=== PATIENT | female | born 1970 | race Caucasian/White ===

== ENCOUNTER 2016-09-26 08:29 | Observation (INO) ==
--- NOTE | 2016-09-26 08:43 | Emergency Department Note ---
Disposition Clinical Impression: Chest pain Qualifiers: Chest pain type: unspecified Qualified Code(s): R07.9 - Chest pain, unspecified Disposition: Admitted As Inpatient Condition: Good Time of Disposition: 09:51 Chest Pain HPI - General Chief Complaint: ED Chest Pain Stated Complaint: Chest Pains Time Seen by Provider: 09/26/16 08:33 Source: patient Mode of arrival: ambulatory Limitations: no limitations Vital Signs Reviewed: Yes Nursing Notes Reviewed: Yes - History of Present Illness HPI Narrative: Patient is an obese 46-year-old female with a past medical history of hypertension, migraine, GERD and pulmonary embolism that presents the ED with chief complaint chest pain that started approximately one hour ago. Patient states chest pain started while she was laying in bed this morning. Patient describes chest pain as dull, sharp, heavy and radiating to her left shoulder with associated nausea. She denies any shortness of breath, cough, fever, chills, abdominal pain, weakness or any other symptoms/complaints. Patient states this nothing like her PEs in the past. States it is a different kind of pain and she normally has as of breath with a PE. Denies smoking. Reports she took an aspirin prior to arrival. Pt complaint: chest pain Onset (ago): hour(s) (1 hr) Duration: constant Onset: during rest Pain Location: substernal, left chest Severity: moderate Severity scale (1-10): 8 Quality: heaviness, sharp, dull Pain Radiation: LUE Improves with: nothing Worsens with: nothing Context: history of DVT/PE Associated symptoms: Reports: nausea. Denies: vomiting, diaphoresis, dyspnea, sense of impending doom, syncope, palpitations, fever, cough, leg swelling Treatments prior to arrival chest pain: aspirin - Related Data Home Medications Medication Instructions Recorded Confirmed Albuterol Sulfate [Proair Hfa] 2 puff IH Q4H PRN 02/09/16 02/09/16 Aspirin 81 mg PO DAILY 02/09/16 02/09/16 Cetirizine HCl [Zyrtec] 10 mg PO DAILY 02/09/16 02/09/16 Cholecalciferol (D-3) [Vitamin D] 1,000 unit PO DAILY 02/09/16 02/09/16 Cyclobenzaprine [Flexeril] 10 mg PO TID PRN 02/09/16 02/09/16 Cyclosporine [Restasis] 1 each OP BID 02/09/16 02/09/16 Diazepam [Valium] 5 mg PO QID PRN 02/09/16 02/09/16 Docusate [Colace] 100 mg PO DAILY 02/09/16 02/09/16 Ferrous Sulfate 325 mg PO DAILY 02/09/16 02/09/16 Fluticasone Propionate Nasal 50 mcg NS BID 02/09/16 02/09/16 [Flonase] Folic Acid/Multivit-Min/Lutein 1 each PO DAILY 02/09/16 02/09/16 [Adult Multivitamin Gummies] Furosemide [Lasix] 40 mg PO BID 02/09/16 02/09/16 Gabapentin [Neurontin] 800 mg PO QID 02/09/16 02/09/16 Glatiramer Acetate [Copaxone] 40 mg SQ MOWEFR 02/09/16 02/09/16 Guaifenesin [Mucinex] 600 mg PO DAILY PRN 02/09/16 02/09/16 HYDROcodone/Acet 10/325 mg [[place] 1 tab PO Q4HR PRN 02/09/16 02/09/16 10-325 mg] Hydrochlorothiazide 12.5 mg PO DAILY 02/09/16 02/09/16 Lidocaine Patch [Lidoderm 5% patch] 1 each TP DAILY 02/09/16 02/09/16 Nystatin POWDER [Nystop] 1 appl TP DAILY 02/09/16 02/09/16 Polyethylene Glycol 3350 [MiraLAX] 17 gm PO DAILY PRN 02/09/16 02/09/16 Promethazine [Phenergan] 25 mg PO HS 02/09/16 02/09/16 Ranitidine HCl [Zantac] 150 mg PO BID 02/09/16 02/09/16 SUMAtriptan Succinate [Imitrex] 100 mg PO AD PRN 02/09/16 02/09/16 Scopolamine Patch [Transderm-Scop] 1.5 mg TD Q72H PRN 02/09/16 02/09/16 Tizanidine HCl [Zanaflex] 4 mg PO HS 02/09/16 02/09/16 Topiramate [Topamax] 50 mg PO BID 02/09/16 02/09/16 Omeprazole [PriLOSEC] 40 mg PO DAILY 09/26/16 09/26/16 Warfarin [Coumadin] 10 - 12.5 mg PO DAILY MDD 09/26/16 09/26/16 DIRECTED Previous Rx's Medication Instructions Recorded Ondansetron ODT [Zofran ODT] 4 mg SL Q8HR #14 tab.rapdis 07/29/16 Allergies Allergy/AdvReac Type Severity Reaction Status Date / Time codeine AdvReac See Verified 08/07/16 12:00 Comments Erythromycin Base AdvReac Vomiting Verified 08/07/16 12:00 Tetracycline AdvReac Vomiting Verified 08/07/16 12:00 All systems ED: reviewed and negative except as stated. Constitutional: Denies: fever, chills, weakness ENT ED: Denies: throat pain Cardiovascular: Reports: chest pain. Denies: palpitations, dyspnea on exertion , syncope, paroxysmal nocturnal dyspnea Respiratory: Denies: cough, dyspnea, wheezes, hemoptysis Gastrointestinal: Reports: nausea. 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: Reports: endometriosis - Social History Smoking Status: Never smoker Alcohol use: Reports: none Drug use: Reports: none Physical Exam - General Limitations: no limitations General appearance: alert, in no apparent distress - Head Head exam: atraumatic, normocephalic, normal inspection - Eye Eye exam: Present: normal appearance, PERRL, EOMI - ENT ENT exam: normal exam, normal oropharynx, mucous membranes moist - Neck Neck exam: Present: normal inspection, full ROM - Chest Chest inspection: Present: normal inspection, symmetric chest wall rise - Respiratory Respiratory exam: Present: normal lung sounds bilaterally - Cardiovascular Cardiovascular exam: Present: regular rate, normal rhythm, normal heart sounds - Abdominal Exam Abdominal exam: Present: soft, Non-Tender, normal bowel sounds, other (obese). Absent: tenderness, distention, guarding, rebound, rigidity - Extremities Exam Extremities exam: Present: normal inspection, full ROM. Absent: tenderness, pedal edema - Expanded Lower Extremity Exam Gait: observed and normal - Back Exam Back exam: Present: normal inspection, full ROM. Absent: tenderness - Neurological Exam Neurological exam: Present: alert, oriented X3, CN II-XII intact, normal gait - Psychiatric Psychiatric exam: Present: normal affect, normal mood - Skin Skin exam: Present: warm, dry, intact, normal color. Absent: rash, cyanosis, diaphoresis Course Course Narrative: Patient is an obese 46-year-old female with a past medical history of hypertension, migraine, GERD and pulmonary embolism that presents the ED with chief complaint chest pain that started approximately one hour ago. Patient states chest pain started while she was laying in bed this morning. Patient describes chest pain as dull, sharp, heavy and radiating to her left shoulder with associated nausea. She denies any shortness of breath, cough, fever, chills, abdominal pain, weakness or any other symptoms/complaints. Patient states this nothing like her PEs in the past. States it is a different kind of pain and she normally has as of breath with a PE. Denies smoking. Reports she took an aspirin prior to arrival. Patient is a very well/nontoxic appearing 46-year-old female. Vital stable. Afebrile. Alert and oriented 3. Appears in acute distress. Heart RRR. Lungs CTAB. Abdomen soft, nontender. Normal bowel sounds. Extremities within normal limits. Pedal edema or unilateral leg swelling. Neuro no focal neurological deficits noted on exam. Cardiac workup ordered. Nitro given. Plan to reevaluate. EKG sinus rhythm. Incomplete right bundle branch block. Nonspecific ST-T wave changes. Negative. D-dimer negative. chest pain improved from an 8 to a 1 with nitroglycerin. Plan To admit to medicine for chest pain rule out. Patient agrees with treatment plan. Discussed case with hospitalist Dr. Pollack. She will accept. No other requests at this time. Vital Signs Temperature 98.6 F 09/26/16 08:31 Pulse Rate 89 09/26/16 08:31 Respiratory Rate 18 09/26/16 08:31 Blood Pressure 140/79 09/26/16 08:31 O2 Sat by Pulse Oximetry 98 09/26/16 08:31 Temperature 98.6 F 09/26/16 08:31 Pulse Rate 91 09/26/16 09:31 Respiratory Rate 16 09/26/16 09:31 Blood Pressure 129/81 09/26/16 09:31 O2 Sat by Pulse Oximetry 93 09/26/16 09:31 Oxygen Delivery Oxygen Delivery Room Air Chest Pain - MDM Narrative Medical decision making narrative: I examined this patient and my medical decision-making was reviewed with the JANITORIAL ACCOUNT MANAGER/PA/Advanced Practice Nurse/Resident Physician. I agree with the documented findings, disposition and treatment plan as described except to the extent set forth below. Patient was seen today by the physician's lead assistant manager Luz Reyes and myself, I agree with her evaluation and management plan, supervise care the patient's stay. Patient had chest pain this morning. She got nitroglycerin and baby aspirin. She said a history of PE in the past but states this does not feel anything like her PE. She is low risk with the well' s criteria so we will do a d-dimer with her. EKG cardiac workup and most likely admission. Patient's agreement with this plan. Chest X-Ray 09/26/16 08:40 IMPRESSION: No acute process. D/ / Raleigh Gomez MD / Raleigh Gomez MD Interpreting Provider: Raleigh Gomez MD 0950 hrs.: Patient's troponin 0 she is pain-free at this time remembering her in for chest pain rule out ACS workup. She is in agreement with plan. - Medical Records Medical records reviewed: Yes I reviewed the patient's medical records. - Lab Data Lab results reviewed: Yes I reviewed the patient's lab results. Result diagrams: 09/26/16 07:49 09/26/16 07:49 Lab Results 09/26/16 09/26/16 09/26/16 Range/Units 07:49 07:49 07:49 WBC 6.6 (4.3-11.1) K/mcL RBC 4.89 (3.82-4.97) M/mcL Hgb 13.6 (11.5-15.4) g/dL Hct 42.0 (35.3-44.9) % MCV 85.9 (83.0-100.0) fL MCH 27.8 L (28.0-33.3) pg MCHC 32.4 (31.6-35.5) g/dL RDW 13.9 (11.5-14.5) % Plt Count 222 (140-400) K/mcL MPV 10.5 (9.4-12.4) fL Immature Gran % 0.5 (0-4) % Seg Neutrophils % 57.0 % Lymphocytes % 31.2 % Monocytes % 8.5 % Eosinophils % 2.3 % Basophils % 0.5 % Neutrophils # 3.8 (1.6-8.9) K/mcL Lymphocytes # 2.1 (0.6-4.6) K/mcL Monocytes # 0.6 (0.0-1.3) K/mcL Eosinophils # 0.2 (0.0-0.6) K/mcL Basophils # 0.0 (0.0-0.2) K/mcL Immature Plt Fraction 7.3 H (1.1-6.1) % PT 20.4 H (9.4-12.1) Seconds INR 1.9 APTT 37.1 H (26.0-36.0) Seconds D-Dimer < 215 (0-500) ng/mLFEU Sodium 140 (136-145) mEq/L Potassium 3.4 L (3.5-4.5) mEq/L Chloride 99 (98-109) mEq/L Carbon Dioxide 32 H (19-29) mEq/L BUN 14 (7-20) mg/dL Creatinine 0.80 (0.57-1.11) mg/dL Est GFR ( Amer) > 60 (> 60) Est GFR (Non-Af Amer) > 60 (> 60) BUN/Creatinine Ratio 18 (6-26) Glucose 101 H (70-99) mg/dL Calculated Osmolality 291 (280-300) Calcium 9.7 (8.6-10.8) mg/dL Troponin I (0-0.03) ng/mL 09/26/16 Range/Units 07:49 WBC (4.3-11.1) K/mcL RBC (3.82-4.97) M/mcL Hgb (11.5-15.4) g/dL Hct (35.3-44.9) % MCV (83.0-100.0) fL MCH (28.0-33.3) pg MCHC (31.6-35.5) g/dL RDW (11.5-14.5) % Plt Count (140-400) K/mcL MPV (9.4-12.4) fL Immature Gran % (0-4) % Seg Neutrophils % % Lymphocytes % % Monocytes % % Eosinophils % % Basophils % % Neutrophils # (1.6-8.9) K/mcL Lymphocytes # (0.6-4.6) K/mcL Monocytes # (0.0-1.3) K/mcL Eosinophils # (0.0-0.6) K/mcL Basophils # (0.0-0.2) K/mcL Immature Plt Fraction (1.1-6.1) % PT (9.4-12.1) Seconds INR APTT (26.0-36.0) Seconds D-Dimer (0-500) ng/mLFEU Sodium (136-145) mEq/L Potassium (3.5-4.5) mEq/L Chloride (98-109) mEq/L Carbon Dioxide (19-29) mEq/L BUN (7-20) mg/dL Creatinine (0.57-1.11) mg/dL Est GFR ( Amer) (> 60) Est GFR (Non-Af Amer) (> 60) BUN/Creatinine Ratio (6-26) Glucose (70-99) mg/dL Calculated Osmolality (280-300) Calcium (8.6-10.8) mg/dL Troponin I 0.00 (0-0.03) ng/mL - Radiology Data Radiology results reviewed: Yes I reviewed the patient's radiology results. - EKG Data EKG attestation: Yes I reviewed and interpreted this EKG. EKG shows normal: sinus rhythm Rate: normal Rhythm: NSR [place]/QRS: normal When compared to previous EKG there are: no significant changes Interpretation: no acute changes, normal EKG, nonspecific ST-T wave changes Heart Score - Score History: Moderately Suspicious EKG: Normal Age: 45-65 Risk Factors: 1-2 risk factors Troponin: Less than normal limit HEART Score Total: 3
[2016-09-26 09:01] LABS: Basophils % 0.5 %; Eosinophils # 0.2 K/mcL (0.0-0.6); Eosinophils % 2.3 %; Hemoglobin 13.6 g/dL (11.5-15.4); Immature Granulocytes % 0.5 % (0-4); Immature Platelets 7.3 % (1.1-6.1); Lymphocytes # 2.1 K/mcL (0.6-4.6); Lymphocytes % 31.2 %; Mean Corpuscular HGB Conc 32.4 g/dL (31.6-35.5); Mean Corpuscular Hemoglobin 27.8 pg (28.0-33.3); Mean Corpuscular Volume 85.9 fL (83.0-100.0); Mean Platelet Volume 10.5 fL (9.4-12.4); Monocytes # 0.6 K/mcL (0.0-1.3); Monocytes % 8.5 %; Neutrophils # 3.8 K/mcL (1.6-8.9); Platelet Count 222 K/mcL (140-400); Red Blood Count 4.89 M/mcL (3.82-4.97); Red Cell Distribution Width 13.9 % (11.5-14.5)
[2016-09-26] MEDS: Nitroglycerin 0.4 MG TAB.SUBL SL ONE ×2 (09:02→09:07)
[2016-09-26 09:09] LABS: INR 1.9; Prothrombin Time 20.4 Seconds (9.4-12.1)
[2016-09-26 09:12] LABS: Activated Partial Thrombo Time 37.1 Seconds (26.0-36.0); BUN/Creatinine Ratio 18 (6-26); Blood Urea Nitrogen 14 mg/dL (7-20); Calcium 9.7 mg/dL (8.6-10.8); Carbon Dioxide 32 mEq/L (19-29); Chloride 99 mEq/L (98-109); Glucose 101 mg/dL (70-99); Osmolality,Calculated 291 (280-300); Potassium 3.4 mEq/L (3.5-4.5); Sodium 140 mEq/L (136-145); eGFR For African Americans > 60 (> 60); eGFR For Non-African Americans > 60 (> 60)
[2016-09-26 09:40] LABS: D-Dimer < 215 ng/mLFEU (0-500)
[2016-09-26] MEDS ORDERED: Ondansetron 4 MG/2 ML VIAL IVP PRN (11:06)
[2016-09-26] MEDS ORDERED: Naloxone 0.4 MG/ML INJ IVP PRN (11:06)
[2016-09-26] MEDS ORDERED: Albuterol 2.5 MG/3 ML NEBULIZER IH PRN (11:17)
--- NOTE | 2016-09-26 11:22 | Internal Med History&Physical ---
<Zabrina Dimas - Last Filed: 09/26/16 12:02> Date of Encounter: 09/26/16 Time of Encounter: 11:22 Assessment and Plan (1) Chest pain Current visit: Yes Status: Acute 1 patient awoke this a.m. experiencing midsternal chest pain radiating to left arm pain was relieved with nitroglycerin. She does not have any past cardiac history however she does have history of PE. She is presently on Coumadin d- dimer less than 200 INR 1.9. Cardiac troponin 0 we will continue to cycle cardiac troponins 2 continue his cardiac monitoring 3 cardiac echo 4 we will make patient nothing by mouth after midnight for nuclear stress in a.m. 5 oxygen as needed to maintain SPO2 greater than 92% 6 nitroglycerin for chest pain 7 continue with aspirin 8 obtain lipid profile in a.m. 9 consult cardiology as needed Qualifiers: Chest pain type: unspecified Qualified Code(s): R07.9 - Chest pain, unspecified (2) Hx pulmonary embolism Current visit: Yes Status: Acute 1 history of PE 2 has failed Protonix as well as relative past. Presently on Coumadin D dimers less than 213. INR 1.9 will continue to monitor INR daily Colace to maintain INR 2-3 2 continue with Coumadin and pharmacy to dose (3) Hypertension Current visit: No Status: Acute 1. Continue with Lasix and hydrochlorothiazide goal is to maintain systolic less than 140 2 low sodium diet Qualifiers: Hypertension type: essential hypertension Qualified Code(s): I10 - Essential (primary) hypertension (4) NATA (obstructive sleep apnea) Current visit: Yes Status: Acute 1 continue his CPAP (5) DVT prophylaxis Current visit: Yes Status: Acute 1 on Coumadin 2 [facility] Internal Medicine - H&P: HPI Chief complaint: Chest pain Admitted From: Emergency Dept Plans for Post Hospital Care: Home History of present illness: Ms. Osborn is a 46 year old female has a history of hypertension and migraine GERD pulmonary embolism morbid obesity. According to patient this a.m. when she awoke she began to experience midsternal chest pressure 8/10 while she was lying in bed. She described the chest pain is dull to sharp heavy and radiating to her left shoulder with associated nausea and she denies any shortness of breath fever cough chills abdominal pain weakness. She states there were no aggravating factors however chest pain was relieved with nitroglycerin. She does have a history of PEs in the past however she states that the pain was nothing like her previous PEs. Patient denies any smoking or previous cardiac history. She did take an aspirin prior to arriving ER. She is anticoagulated on Coumadin and has been taking medications as prescribed.According to ER records lab work was unremarkable troponin was 0 D- dimer was less than 215 INR was 1.9. EKG sinus rhythm with incomplete right bundle branch block. Chest x-ray with no acute process. Patient has been admitted for further workup and evaluation. Presently patient does not appear to be any respiratory distress she denies any chest pain or shortness of breath lung sounds are clear throughout heart sounds S1-S2 with no rubs gallops, rubs or murmurs noted. She is hemodynamic stable prior to today patient has been in her normal state of health except for being treated for an ear infection. Reviewed case with Past Med Surg Social Fam HX - Past Medical History Medical history: GERD, hypertension, migraine, pulmonary embolus, other Psychiatric history: anxiety, depression - Past Surgical History Surgical History: cholecystectomy, other - Social History Smoking Status: Never smoker Smokeless Tobacco Status: No Alcohol use: none Drug use: none - Family History Mother Living Status: Still Living Hx Family Cardiac Disorders: Yes Hx Family Respiratory Disorders: No Hx Family Cancer: No Hx Family GI Disorders: No Hx Family Endocrine Disorder: Yes Hx Family Neuromuscular Disorders: No Hx Family Neurologic Disorders: No Hx Family HEENT Disorders: No Hx Family Autoimmune Disorders: No Father Living Status: Still Living Hx Family Cardiac Disorders: Yes Hx Family Respiratory Disorders: No Hx Family Cancer: No Hx Family GI Disorders: No Hx Family Endocrine Disorder: Yes Hx Family Neuromuscular Disorders: No Hx Family Neurologic Disorders: Yes Hx Family HEENT Disorders: No Hx Family Autoimmune Disorders: No Brother Living Status: Still Living Hx Family Cardiac Disorders: No Hx Family Respiratory Disorders: No Hx Family Cancer: No Hx Family GI Disorders: No Hx Family Endocrine Disorder: No Hx Family Neuromuscular Disorders: No Hx Family Neurologic Disorders: No Hx Family HEENT Disorders: No Hx Family Autoimmune Disorders: No Internal Medicine - H&P: Meds Albuterol Sulfate [Proair Hfa] 2 puff IH Q4H PRN 02/09/16 [History] Aspirin 81 mg PO DAILY 02/09/16 [History] Cetirizine HCl [Zyrtec] 10 mg PO DAILY 02/09/16 [History] Cholecalciferol (D-3) [Vitamin D] 1,000 unit PO DAILY 02/09/16 [History] Cyclobenzaprine [Flexeril] 10 mg PO TID PRN 02/09/16 [History] Cyclosporine [Restasis] 1 each OP BID 02/09/16 [History] Diazepam [Valium] 5 mg PO QID PRN 02/09/16 [History] Docusate [Colace] 100 mg PO DAILY 02/09/16 [History] Ferrous Sulfate 325 mg PO DAILY 02/09/16 [History] Fluticasone Propionate Nasal [Flonase] 1 spray NS BID 02/09/16 [History] Folic Acid/Multivit-Min/Lutein [Adult Multivitamin Gummies] 1 tab PO DAILY 02/08 [History] Furosemide [Lasix] 40 mg PO BID 02/09/16 [History] Gabapentin [Neurontin] 800 mg PO QID 02/09/16 [History] Glatiramer Acetate [Copaxone] 40 mg SQ MOWEFR 02/09/16 [History] Guaifenesin [Mucinex] 600 mg PO DAILY PRN 02/09/16 [History] HYDROcodone/Acet 10/325 mg [[place] 10-325 mg] 1 tab PO Q4HR PRN 02/09/16 [History ] Hydrochlorothiazide 12.5 mg PO DAILY 02/09/16 [History] Lidocaine Patch [Lidoderm 5% patch] 1 each TP DAILY 02/09/16 [History] Nystatin POWDER [Nystop] 1 appl TP DAILY 02/09/16 [History] Polyethylene Glycol 3350 [MiraLAX] 17 gm PO DAILY PRN 02/09/16 [History] Promethazine [Phenergan] 25 mg PO HS 02/09/16 [History] Ranitidine HCl [Zantac] 150 mg PO BID 02/09/16 [History] SUMAtriptan Succinate [Imitrex] 100 mg PO AD PRN 02/09/16 [History] Scopolamine Patch [Transderm-Scop] 1.5 mg TD Q72H PRN 02/09/16 [History] Tizanidine HCl [Zanaflex] 4 mg PO HS 02/09/16 [History] Topiramate [Topamax] 50 mg PO BID 02/09/16 [History] Ondansetron ODT [Zofran ODT] 4 mg SL Q8HR #14 tab.rapdis 07/29/16 [Rx] Omeprazole [PriLOSEC] 40 mg PO DAILY 09/26/16 [History] Warfarin [Coumadin] 10 - 12.5 mg PO DAILY MDD DIRECTED 09/26/16 [History] Allergies codeine Adverse Reaction (Verified 08/07/16 12:00) See Comments hyperactivity Erythromycin Base Adverse Reaction (Verified 08/07/16 12:00) Vomiting Tetracycline Adverse Reaction (Verified 08/07/16 12:00) Vomiting All Systems PM: A 10-system review of systems was performed and is negative for pertinent findings except as documented above in the HPI. - Constitutional Constitutional: no chills, no fever(s), no night sweats - EENT Eyes: no change in vision, no discharge, no pain, no photophobia Ears: ear pain - Cardiovascular Cardiovascular ROS IM: chest pain, edema, no diaphoresis, no dyspnea, no lightheadedness, no palpitations, no syncope - Respiratory Respiratory: no cough, no dyspnea, no wheezing, no excessive phlegm production - Gastrointestinal Gastrointestinal: no abdominal pain, no diarrhea, no hematemesis, no hematochezia, no melena, no nausea, no vomiting - Genitourinary Genitourinary: no change in urinary stream, no dysuria, no flank pain, no hematuria - Musculoskeletal Musculoskeletal ROS IM: no numbness, no tingling - Integumentary Integumentary IM: no rash, no unusual bruising - Neurological Neurological ROS: no confusion, no convulsions, no focal weakness, no numbness, no tingling, no tremor(s) - Hematologic/Lymphatic Hematologic/Lymphatic: no easy bruising - Constitutional Vitals: Temp Pulse Resp BP Pulse Ox 97.7 F 81 16 143/74 97 09/26/16 10:51 09/26/16 10:51 09/26/16 10:51 09/26/16 10:51 09/26/16 10:51 General appearance: Present: A&O X 3, morbidly obese, answers questions appropriately - Head Head exam: Present: atraumatic, normocephalic - Eye Eye exam: Present: PERRL, conjuntiva pink, sclera anicteric Pupils: Present: PERRL - Neck Neck exam general surgery: Present: supple, trachea midline. Absent: lymphadenopathy - Respiratory Respiratory exam: Present: CTAB. Absent: accessory muscle use, rales, rhonchi, wheezes - Cardiovascular Cardiovascular exam: Present: RRR, +S1, +S2. Absent: diastolic murmur, gallop, rubs, systolic murmur - GI/Abdominal GI/Abdominal exam: Present: normal bowel sounds, soft, no peritoneal signs. Absent: distended, tenderness - Extremities Exam Extremities exam: Present: warm, radial pulses palpable and symetrical. Absent : calf tenderness, cyanotic, pedal edema - Neurological Exam Neurological exam: Present: CN II-XII intact, oriented X3, no focal deficits. Absent: pronater drift, facial droop, speech deficit - Skin Skin exam: Present: dry, intact Internal Med - H&P Results - Labs CBC & Chem 7: 09/26/16 07:49 09/26/16 07:49 - Diagnostic Studies Other Images Additional comments: Chest X-Ray 09/26/16 08:40 IMPRESSION: No acute process. D/ / Raleigh Gomez MD / Raleigh Gomez MD Interpreting Provider: Raleigh Gomez MD <Lupis Deleon - Last Filed: 09/26/16 17:09> Date of Encounter: 09/26/16 Internal Medicine - H&P: HPI History of present illness: Ms. Osborn is a 46 year old female All Systems PM: A 10-system review of systems was performed and is negative for pertinent findings except as documented above in the HPI. - Constitutional Vitals: Temp Pulse Resp BP Pulse Ox 98.1 F 86 16 134/81 98 09/26/16 14:52 09/26/16 14:52 09/26/16 14:52 09/26/16 14:52 09/26/16 14:52 Internal Med - H&P Results - Labs CBC & Chem 7: 09/26/16 07:49 09/26/16 07:49 Labs: Cardiac Enzymes 09/26/16 Range/Units 13:36 Troponin I 0.00 (0-0.03) ng/mL - Attending Attestation I examined this patient and my medical decision-making was reviewed with the Advanced Practice Nurse. I agree with the documented findings, disposition and treatment plan as described
[2016-09-26] MEDS: Gabapentin 400 MG CAPSULE PO SCH ×3 (12:04→21:48)
[2016-09-26] MEDS: Acetaminophen 325 MG TABLET PO PRN (12:04)
[2016-09-26] MEDS ORDERED: SUMAtriptan succinate 50 MG TABLET PO PRN (14:15)
[2016-09-26] MEDS: diazePAM 5 MG TABLET PO PRN ×2 (14:36→22:08)
[2016-09-26] MEDS: *HR* HYDROcodone/Acet 10/325 mg TABLET PO PRN ×2 (14:41→22:00)
[2016-09-26] MEDS: Furosemide 40 MG TABLET PO SCH (17:15)
--- NOTE | 2016-09-26 17:35 | Electrocardiograph Report ---
[address] [place] [address] Test Date: 2016-09-26 Pat Name: Carmina Osborn Department: 102 Room: 3B Gender: F Catalog Specialist: Kathie : 1970 Requested By: Sulma Reyes Order Number: [id number] Reading MD: Nikita Abernathy Measurements Intervals [place] Rate: 93 P: 52 SD: 182 QRS: 3 QRSD: 106 T: 59 QT: 370 QTc: 421 Interpretive Statements SINUS RHYTHM INCOMPLETE RIGHT BUNDLE BRANCH BLOCK MINIMAL ST DEPRESSION Electronically Signed On 09-26-2016 17:33:20 EDT by Nikita Abernathy
[2016-09-26] MEDS ORDERED: Warfarin perPT PO PRN (18:00)
[2016-09-26] MEDS ORDERED: *HR* Warfarin 7.5 MG TABLET PO SCH (18:00)
[2016-09-26] MEDS ORDERED: Amoxicillin 500 MG CAPSULE PO SCH (21:00)
[2016-09-26] MEDS: Topiramate 25 MG TABLET PO SCH (21:47)
[2016-09-26] MEDS: Famotidine 20 MG TABLET PO SCH (21:47)
[2016-09-26] MEDS: tiZANidine 4 MG TABLET PO SCH (21:47)
[2016-09-26] MEDS: COPAXONE 40 MG SQ SCH (22:59)
[2016-09-26] MEDS: Amoxicillin 500 MG CAPSULE PO SCH (23:00)
[2016-09-27] MEDS: *HR* HYDROcodone/Acet 10/325 mg TABLET PO PRN ×3 (04:18→18:30)
[2016-09-27 04:45] LABS: INR 1.9; Prothrombin Time 20.4 Seconds (9.4-12.1)
[2016-09-27 04:47] LABS: Basophils % 0.6 %; Eosinophils # 0.2 K/mcL (0.0-0.6); Eosinophils % 2.2 %; Hematocrit 37.3 % (35.3-44.9); Hemoglobin 12.6 g/dL (11.5-15.4); Immature Granulocytes % 0.1 % (0-4); Lymphocytes # 2.4 K/mcL (0.6-4.6); Lymphocytes % 35.2 %; Mean Corpuscular HGB Conc 33.8 g/dL (31.6-35.5); Mean Corpuscular Hemoglobin 28.7 pg (28.0-33.3); Mean Platelet Volume 11.4 fL (9.4-12.4); Monocytes # 0.6 K/mcL (0.0-1.3); Monocytes % 9.3 %; Neutrophils # 3.6 K/mcL (1.6-8.9); Platelet Count 222 K/mcL (140-400); Red Blood Count 4.39 M/mcL (3.82-4.97); Red Cell Distribution Width 14.1 % (11.5-14.5); Segmented Neutrophils % 52.6 %
[2016-09-27 04:54] LABS: BUN/Creatinine Ratio 14 (6-26); Blood Urea Nitrogen 11 mg/dL (7-20); Calcium 9.2 mg/dL (8.6-10.8); Carbon Dioxide 29 mEq/L (19-29); Chloride 101 mEq/L (98-109); Chol/HDL Ratio 3.9 (0-4.9); Cholesterol 152 mg/dL (< 200); Glucose 106 mg/dL (70-99); HDL Cholesterol 39 mg/dL (40-59); LDL Cholesterol,Calculated 93 mg/dL (0-99); Osmolality,Calculated 288 (280-300); Potassium 3.3 mEq/L (3.5-4.5); Sodium 139 mEq/L (136-145); Triglycerides 102 mg/dL (< 150); eGFR For African Americans > 60 (> 60); eGFR For Non-African Americans > 60 (> 60)
[2016-09-27] MEDS ORDERED: Regadenoson 0.4 MG/5 ML SYRINGE IVP ONE (06:16)
[2016-09-27] MEDS: Famotidine 20 MG TABLET PO SCH ×2 (11:23→20:41)
[2016-09-27] MEDS: Amoxicillin 500 MG CAPSULE PO SCH ×3 (11:23→20:41)
[2016-09-27] MEDS: Topiramate 25 MG TABLET PO SCH ×2 (11:23→20:41)
[2016-09-27] MEDS: SUMAtriptan succinate 50 MG TABLET PO SCH (11:23)
[2016-09-27] MEDS: Gabapentin 400 MG CAPSULE PO SCH ×4 (11:24→20:41)
[2016-09-27] MEDS: Aspirin 81 MG TAB.CHEW PO SCH (11:24)
[2016-09-27] MEDS: Furosemide 40 MG TABLET PO SCH ×2 (11:24→18:30)
[2016-09-27] MEDS: hydroCHLOROthiazide 25 MG TABLET PO SCH (11:24)
--- NOTE | 2016-09-27 12:10 | Internal Med Progress Note ---
Date of Encounter: 09/27/16 Time of Encounter: 11:05 - Assessment and plan (1) Chest pain Current Visit: Yes Status: Acute Assessment and plan: Patient reports sudden onset midsternal, constant, sharp chest pain that began yesterday morning at 7 AM. There is no radiation of the chest pain. She denies shortness of breath, nausea, vomiting, or diaphoresis. She said that the pain awakened her and that it ended when she got nitroglycerin in the emergency department yesterday. She estimates the pain lasted for a couple of hours. Patient will have a 2 day stress test. She completed day 1 today. She also had an echocardiogram today. At this time those results are not available. She is pain-free at this time. Troponins were negative 3. Chest x-ray was negative for any acute cardiopulmonary disease. Continue telemetry Secondary stress test and echo results pending Nothing by mouth again tonight after midnight for stress test in the morning Oxygen titrated as needed to maintain saturation greater than 92% Nitroglycerin when necessary chest pain Continue aspirin Consult cardiology as needed Patient takes Coumadin for prior history of pulmonary embolism Monitor vital signs Monitor labs Qualifiers: Chest pain type: unspecified Qualified Code(s): R07.9 - Chest pain, unspecified (2) Stable multiple sclerosis Current Visit: Yes Status: Chronic Assessment and plan: Stable. Pt reports that she has recurring remitting MS. Continue home medications. (3) NATA (obstructive sleep apnea) Current Visit: No Status: Chronic Assessment and plan: Chronic. CPAP qhs (4) Hypertension Current Visit: No Status: Chronic Assessment and plan: Chronic. Continue home medications. Qualifiers: Hypertension type: essential hypertension Qualified Code(s): I10 - Essential (primary) hypertension (5) Morbid obesity due to excess calories Current Visit: No Status: Chronic Assessment and plan: Chronic. Lifestyle modifications. (6) Hx pulmonary embolism Current Visit: No Status: Resolved Assessment and plan: :Prior history. Pt is on Coumadin. Less than therapeutic at 1.9. Pharmacy to dose. (7) DVT prophylaxis Current Visit: Yes Status: Acute Assessment and plan: On Coumadin CHASE Thomas - Time Spent With Patient less than 15 minutes - Subjective Interval history: Patient was seen and examined at approximately 11:05 AM. She just returned from the first part of her 2 day stress test. She denies chest pain. She reports new onset of midsternal chest pain that was constant. It started yesterday morning at 7 AM. She denies radiation. She reports the pain as being sharp she denies shortness of breath, nausea, vomiting, or diaphoresis. She is awake, alert, oriented, and pleasant. Family is at bedside. She has chronic lymphedema to her left lower extremity and wears CHASE hose. Patient is pain-free. In is aware that she is having a 2 day stress test. She denies any major complaints at this time. - Constitutional Vitals: Temp Pulse Resp BP Pulse Ox 97.8 F 86 16 158/90 97 09/27/16 11:29 09/27/16 11:29 09/27/16 11:29 09/27/16 11:29 09/27/16 11:29 General appearance: Present: A&O X 3, morbidly obese, no acute distress, answers questions appropriately - Head Head exam: Present: normal inspection - Eye Eye exam: Present: normal appearance, conjuntiva pink - ENT ENT exam: Present: mucous membranes moist, normal exam - Neck Neck exam general surgery: Present: normal inspection. Absent: lymphadenopathy , tenderness - Respiratory Respiratory exam: Present: CTAB. Absent: chest wall tenderness, rales, respiratory distress, rhonchi, wheezes - Cardiovascular Cardiovascular exam: Present: RRR, +S1, +S2. Absent: diastolic murmur, systolic murmur - GI/Abdominal GI/Abdominal exam: Present: normal bowel sounds, soft. Absent: distended, hepatomegaly, tenderness - Extremities Exam Extremities exam: Present: pedal edema, warm, radial pulses palpable and symetrical. Absent: tenderness Additional comments: Pt with lymphedema RLE, wearing CHASE hose nelly. + edema and pedal pulses nelly. - Neurological Exam Neurological exam: Present: alert, oriented X3, strengths equal and symetr throughout. Absent: no focal deficits, facial droop, speech deficit Internal Medicine: Result - Labs CBC & Chem 7: 09/27/16 03:36 09/27/16 03:36 Labs: Short CBC 09/27/16 Range/Units 03:36 WBC 6.9 (4.3-11.1) K/mcL Hgb 12.6 (11.5-15.4) g/dL Hct 37.3 (35.3-44.9) % Plt Count 222 (140-400) K/mcL Neutrophils # 3.6 (1.6-8.9) K/mcL BMP 09/27/16 03:36 Sodium 139 Potassium 3.3 L Chloride 101 Carbon Dioxide 29 BUN 11 Creatinine 0.77 Glucose 106 H Calcium 9.2 Cardiac Enzymes 09/26/16 09/26/16 Range/Units 13:36 20:17 Troponin I 0.00 0.00 (0-0.03) ng/mL - ABG Interpretation ABG results: PT/INR, D-dimer PT 20.4 Seconds (9.4-12.1) H 09/27/16 03:36 D-Dimer < 215 ng/mLFEU (0-500) 09/26/16 07:49 Consult Discharge Plan - Plan Referrals: Pete Najera DO [Primary Care Provider] -
[2016-09-27] MEDS ORDERED: *HR* Warfarin 10 MG TABLET PO ONE (18:00)
[2016-09-27] MEDS: diazePAM 5 MG TABLET PO PRN (18:30)
[2016-09-27] MEDS: tiZANidine 4 MG TABLET PO SCH (20:41)
--- NOTE | 2016-09-27 21:55 | ECHO - Doppler Report ---
Echocardiogram Name: Carmina Osborn Date of Study: 09/26/2016 Date: 1970 Ht: 67.0 in Medical Record#: [id number] Age: 46 Wt: 397.0 lb Gender: Female BSA: 2.71 Order #: [id number] Location: [facility] Room #: 3B Reading Physician: Leo Pope DO, EVE SOLORIO Freight Traffic Consultant: Shira Shannon RDCS Ordering Physician: Zabrina Dimas CNP Primary Physician: Pete Najera DO Indications: Chest pain Impressions: Technically sub-optimal due to body habitus. LVEF 55-60%. Grossly ormal LV chamber size and wall thickness. Not all LV segments were well visualized, but overall function appears normal. Indeterminate diastolic function. Grossly, mildly dialted with right ventricle with normal function. Unable to estimate RVSP due to lack of TR jet. No obvious significant valvular dysfunction. Findings: Study Quality * Technically sub-optimal due to body habitus. ECG Findings * Normal sinus rhythm. Left Ventricle * LVEF 55-60%. * Grossly ormal LV chamber size and wall thickness. Not all LV segments were well visualized, but overall function appears normal. * Indeterminate diastolic function. Right Ventricle * Grossly, mildly dialted with right ventricle with normal function. Left Atrium * Mild to moderately dilated left atrium. Right Atrium * Mildly dilated right atrium. Interatrial Septum * Interatrial septum not well evaluated. Aortic Valve * Aortic valve not well visualized. * No aortic regurgitation. * No aortic stenosis. Mitral Valve * Mitral valve not well visualized. * No mitral regurgitation. * No mitral stenosis. Tricuspid Valve * Tricuspid valve not well visualized. * No tricuspid regurgitation. * Unable to estimate RVSP due to lack of TR jet. Pulmonic Valve * Pulmonic valve is not well visualized. Aorta * Normally sized aortic root. Pericardium * The pericardium appears normal. IVC * The IVC is not well evaluated. Pulmonary Artery * Pulmonary artery not well visualized. History Hypertension Family History of CAD 11/27/2015 a Previous Echo was performed. Measurements: BP: 134/ 81 2D Normal Values RVIDd: 3.42 cm <2.7 cm IVSd: .94 cm 0.6 - 1.0 cm LVIDd: 5.48 cm 3.7 - 5.6 cm LVPWd: 1.10 cm 0.6 - 1.1 cm LVIDs: 3.32 cm 1.5 - 3.6 cm AO: 2.50 cm < 4.0 cm LA: 3.20 cm 2.0 - 4.0cm %FS: 39.40 cm >25 % LA volume: 51 Mitral Valve Peak E:1.04 m/sec Peak A:.76 m/sec E/A Ratio:1.4 Peak E' Lat Tam:16.2 cm/s Peak E' Med Tam:14.5 cm/s E/E' Lat Ratio:6.4 E/E' Med Ratio:7.2 Updated by Leo Pope DO, FACHussein, EVE, GUALBERTO on 09/27/2016 9:19:34 PM electronically signed on 09/27/2016 9:50:07 PM with status of Final Wall Motion Demarco: 1=Normal, 2=Hypokinesis, 3=Akinesis, 4=Dyskinesis, 5=Aneurysmal, 6=Hyperkinetic, X=Not Visualized (Blank)=Missing
[2016-09-28 04:33] LABS: Basophils % 0.5 %; Eosinophils # 0.2 K/mcL (0.0-0.6); Eosinophils % 2.5 %; Hematocrit 39.7 % (35.3-44.9); Immature Granulocytes % 0.2 % (0-4); Lymphocytes # 2.7 K/mcL (0.6-4.6); Lymphocytes % 32.5 %; Mean Corpuscular HGB Conc 32.7 g/dL (31.6-35.5); Mean Corpuscular Hemoglobin 28.3 pg (28.0-33.3); Mean Corpuscular Volume 86.3 fL (83.0-100.0); Mean Platelet Volume 11.1 fL (9.4-12.4); Monocytes # 0.7 K/mcL (0.0-1.3); Monocytes % 8.6 %; Neutrophils # 4.7 K/mcL (1.6-8.9); Platelet Count 216 K/mcL (140-400); Red Cell Distribution Width 14.1 % (11.5-14.5); Segmented Neutrophils % 55.7 %
[2016-09-28 04:34] LABS: INR 1.9; Prothrombin Time 20.4 Seconds (9.4-12.1)
[2016-09-28 04:43] LABS: BUN/Creatinine Ratio 19 (6-26); Blood Urea Nitrogen 15 mg/dL (7-20); Calcium 9.5 mg/dL (8.6-10.8); Carbon Dioxide 30 mEq/L (19-29); Chloride 104 mEq/L (98-109); Glucose 115 mg/dL (70-99); Osmolality,Calculated 294 (280-300); Potassium 3.6 mEq/L (3.5-4.5); Sodium 141 mEq/L (136-145); eGFR For African Americans > 60 (> 60); eGFR For Non-African Americans > 60 (> 60)
[2016-09-28] MEDS: *HR* HYDROcodone/Acet 10/325 mg TABLET PO PRN ×2 (05:30→12:34)
[2016-09-28] MEDS: Aspirin 81 MG TAB.CHEW PO SCH (09:51)
[2016-09-28] MEDS: Topiramate 25 MG TABLET PO SCH (09:51)
[2016-09-28] MEDS: Amoxicillin 500 MG CAPSULE PO SCH ×2 (09:51→16:49)
[2016-09-28] MEDS: diazePAM 5 MG TABLET PO PRN (09:51)
[2016-09-28] MEDS: SUMAtriptan succinate 50 MG TABLET PO SCH (09:52)
[2016-09-28] MEDS: Famotidine 20 MG TABLET PO SCH (09:52)
[2016-09-28] MEDS: hydroCHLOROthiazide 25 MG TABLET PO SCH (09:52)
[2016-09-28] MEDS: Furosemide 40 MG TABLET PO SCH ×2 (09:52→16:50)
[2016-09-28] MEDS: Gabapentin 400 MG CAPSULE PO SCH ×3 (09:52→16:49)
[2016-09-28] MEDS: COPAXONE 40 MG SQ SCH (09:53)
--- NOTE | 2016-09-28 10:16 | Nuclear Medicine Stress Report ---
Regadenoson Nuclear 2 Name: Carmina Osborn Date of Study: 09/27/2016 Date: 1970 Ht: 67.0 in Medical Record#: [id number] Age: 46 Wt: 392.0 lb Gender: Female Order #: [id number] Location: [facility] Room: [facility] Supervising Provider: Yaz Carvalho CNP Reading Physician: Leo Pope DO, FACHussein, GUALBERTO PRADO Ordering Physician: Yani Tinoco CNP Primary Care Physician: Pete Najera DO Stress Technologist: Rina Shelby, PHOTO MASK PATTERN GENERATOR, CPFT Ductfixing Plumber: Júnior Gomez Indications: Chest Pain Impression: Study quality was fair and limited by body habitus. Pharmacologic stress ECG is negative for ischemia at level of heart rate achieved. There is a small sized, mild intensity, fixed apex defect. Wall motion is normal and perfusion is worse on rest imaging, which is consistent with artifact. Medium sized, mild intensity, reversible anterior perfusion defect. Ischemia cannot be excluded. Jose Frias CNP notified via [employer]. History: Hypertension Stress Test Summary: Stress Test Type: Pharmacologic Regadenoson 0.4mg/5ml given IV Baseline Information: Initial Heart Rate: 89 Blood Pressure: 108/62 Stress Information: Test Terminated Due to (primary): As per protocol Maximum Blood Pressure: 110/62 Maximum Heart Rate: 108 Percent Maximum Heart Rate Achieved: 62 Double Product: [id number] METS Reached: 1 Symptoms: No chest symptoms Nuclear Summary: SPECT myocardial perfusion imaging using Tc99m Sestamibi given intravenously was performed at rest and following cardiac stress testing. The resting images were obtained following initial dose of 33.6 mCi. Following stress an additional dose of 32.0 mCi was given at peak exercise or 30 seconds post regadenoson infusion. Medication Given: Time Medication Dose Units Route Findings: Stress Note * Resting ECG demonstrated normal sinus rhythm. * No baseline arrhythmias were noted. * Pharmacologic stress ECG is negative for ischemia at level of heart rate achieved. * No arrhythmias were noted during stress. * Patient had no chest pain during stress. * Normal hemodynamic responses to pharmacologic stress. Study Quality * Study quality was fair and limited by body habitus. Gated EF % * Gated EF = 72%. Left Ventricle * LVEDV = 134 mL. NORMALS * Normal wall motion. Apical Perfusion Rest * The apex and apical inferior segments show a mild reduction in perfusion. Apical Perfusion Stress * The apex segment shows a mild reduction in perfusion. Anterior Perfusion Stress * The anterior segments show a mild reduction in perfusion. Updated by Leo Pope DO, FACHussein, EVE, GUALBERTO on 09/28/2016 10:09:25 AM electronically signed on 09/28/2016 10:12:03 AM with status of Final
[2016-09-28] MEDS: Acetaminophen 325 MG TABLET PO PRN (11:09)
--- NOTE | 2016-09-28 14:41 | Cardiology Consult Note ---
Date of Encounter: 09/28/16 Time of Encounter: 14:00 Assessment and Plan (1) Chest pain Current Visit: Yes Status: Acute Per cardiology: -Atypical chest pain that occured at rest. Denies excertional symptoms. -Denies increased fatigue, or increased shortness of breath. -ECG with no ischemic changes. -Troponins negative x3. -Currently chest pain. Qualifiers: Chest pain type: unspecified Qualified Code(s): R07.9 - Chest pain, unspecified (2) Abnormal stress test Current Visit: Yes Status: Acute Per cardiology: -Stress test 09/28/16 with small sized, mild intensity, fixed apex defect, consistent with artifact; medium sized, mild intensity, reversible anterior perfusion defect, ischemia cannot be ruled out. -Echocardiogram 09/26/16 with LVEF 55-60%, indeterminate diastolic function, grossly midly dilated with right ventricle with normal function, no significant valvular dysfunction. -Patient previously seen by at [facility]. -On asa -Discuissed at length with pateint and famly regarding abnormal stress test. Patient wishes to follow up with . -Educated on when to go to ER for chest pain, -Will optimize medications with beta kelly, statin. -Patient already made appointment iwth on 10/11/16. -Recommend discharging patient with sublingual nitro, patient educated on how to use. -Cardiology will sign off and recommend patient follow with primary steam table attendant. Discussion w patient/family: The assessment and plan as outlined above was discussed with the patient and/or family members who expressed understanding and agreement. All questions were answered. Thank you for involving us in the care of your patient. Please call with any questions. Discussed and reviewed with Dr.John Abernathy. History of Present Illness Consult date: 09/28/16 Requesting physician: Lanny Augustine Consult reason: abnormal stress test Chief complaint: chest pain History of present illness: Ms. Osborn is a 46 year old female with a relevant past medical history of PE, morbid obesity, reported CVA. Patient states she was at home, woke up at night and sat up on the side of the bed. Patient states when she sat up she has midsternal chest pain that radiated down left arm. Patient denies aggervating or alleviated factors. Patient denies increased shortness of breath. Patient denies increased fatigue. Patient currently chest pain free. Past Med Surg Social Fam HX - Past Medical History Attestation: Yes The following information was validated with the patient. Source: patient, old records reviewed, obtained from family Medical history: GERD, hypertension, migraine, pulmonary embolus, other Psychiatric history: anxiety, depression - Past Surgical History Surgical History: cholecystectomy, other - Social History Smoking Status: Never smoker Smokeless Tobacco Status: No Alcohol use: none Drug use: none - Family History Mother Living Status: Still Living Hx Family Cardiac Disorders: Yes Hx Family Respiratory Disorders: No Hx Family Cancer: No Hx Family GI Disorders: No Hx Family Endocrine Disorder: Yes Hx Family Neuromuscular Disorders: No Hx Family Neurologic Disorders: No Hx Family HEENT Disorders: No Hx Family Autoimmune Disorders: No Father Living Status: Still Living Hx Family Cardiac Disorders: Yes Hx Family Respiratory Disorders: No Hx Family Cancer: No Hx Family GI Disorders: No Hx Family Endocrine Disorder: Yes Hx Family Neuromuscular Disorders: No Hx Family Neurologic Disorders: Yes Hx Family HEENT Disorders: No Hx Family Autoimmune Disorders: No Brother Living Status: Still Living Hx Family Cardiac Disorders: No Hx Family Respiratory Disorders: No Hx Family Cancer: No Hx Family GI Disorders: No Hx Family Endocrine Disorder: No Hx Family Neuromuscular Disorders: No Hx Family Neurologic Disorders: No Hx Family HEENT Disorders: No Hx Family Autoimmune Disorders: No Medications and Allergies Albuterol Sulfate [Proair Hfa] 2 puff IH Q4H PRN 02/09/16 [History] Aspirin 81 mg PO DAILY 02/09/16 [History] Cetirizine HCl [Zyrtec] 10 mg PO DAILY 02/09/16 [History] Cholecalciferol (D-3) [Vitamin D] 1,000 unit PO DAILY 02/09/16 [History] Cyclobenzaprine [Flexeril] 10 mg PO TID PRN 02/09/16 [History] Cyclosporine [Restasis] 1 each OP BID 02/09/16 [History] Docusate [Colace] 100 mg PO DAILY 02/09/16 [History] Ferrous Sulfate 325 mg PO DAILY 02/09/16 [History] Fluticasone Propionate Nasal [Flonase] 1 spray NS BID 02/09/16 [History] Folic Acid/Multivit-Min/Lutein [Adult Multivitamin Gummies] 1 tab PO DAILY 02/08 [History] Furosemide [Lasix] 40 mg PO BID 02/09/16 [History] Gabapentin [Neurontin] 800 mg PO QID 02/09/16 [History] Glatiramer Acetate [Copaxone] 40 mg SQ MOWEFR 02/09/16 [History] Guaifenesin [Mucinex] 600 mg PO DAILY PRN 02/09/16 [History] HYDROcodone/Acet 10/325 mg [Oilton 10-325 mg] 1 tab PO Q4HR PRN 02/09/16 [History ] Hydrochlorothiazide 12.5 mg PO DAILY 02/09/16 [History] Lidocaine Patch [Lidoderm 5% patch] 1 each TP DAILY 02/09/16 [History] Nystatin POWDER [Nystop] 1 appl TP DAILY 02/09/16 [History] Polyethylene Glycol 3350 [MiraLAX] 17 gm PO DAILY PRN 02/09/16 [History] Promethazine [Phenergan] 25 mg PO HS 02/09/16 [History] Ranitidine HCl [Zantac] 150 mg PO BID 02/09/16 [History] SUMAtriptan Succinate [Imitrex] 100 mg PO AD PRN 02/09/16 [History] Scopolamine Patch [Transderm-Scop] 1.5 mg TD Q72H PRN 02/09/16 [History] Tizanidine HCl [Zanaflex] 4 mg PO HS 02/09/16 [History] Topiramate [Topamax] 50 mg PO BID 02/09/16 [History] diazePAM [Valium] 5 mg PO QID PRN 02/09/16 [History] Ondansetron ODT [Zofran ODT] 4 mg SL Q8HR #14 tab.rapdis 07/29/16 [Rx] Omeprazole [PriLOSEC] 40 mg PO DAILY 09/26/16 [History] Warfarin [Coumadin] 10 mg PO MOWEFR@1800 09/26/16 [History] Warfarin [Coumadin] 7.5 mg PO SUTUTHSA@1800 09/27/16 [History] Allergies codeine Adverse Reaction (Verified 08/07/16 12:00) See Comments hyperactivity Erythromycin Base Adverse Reaction (Verified 08/07/16 12:00) Vomiting Tetracycline Adverse Reaction (Verified 08/07/16 12:00) Vomiting All Systems Review: A 10-system review of systems was performed and is negative for pertinent findings except as documented above in the HPI. - Cardiovascular Cardiovascular: as per HPI, chest pain at rest Physical Examination Vital Signs, Last 4 Hours Temp Pulse Resp BP Pulse Ox 09/28/16 11:07 97.6 F 86 17 113/67 96 General: Conversant, No Apparent Distress HEENT: Atraumatic, Normocephaly, Mucus Membranes Moist Neck: No JVD, Normal carotid pulses Cardiac: Reg Rate and Rhythm, Normal S1 and S2, No Murmur Lungs: Normal Breath Sounds, No Wheeze, Rales, Rhonchi Neuro: Alert and responsive, No focal deficits noted Abdomen: Soft, Non-Tender Skin: No rashes noted on visualized skin Musculoskeletal: No Chest Wall Tenderness Extremities: No Clubbing, No Cyanosis, Normal Pulses, Other (2+ bilateral lower extremity pedal edema. ) Results 09/28/16 04:13 09/28/16 04:13 Lab Results Active Medications Acetaminophen (Tylenol) 650 mg PO Q6HR PRN PRN Reason: Mild Pain (1-3) Stop: 03/28/17 11:07 Last Admin: 09/28/16 11:09 Dose: 650 mg Acetaminophen/Hydrocodone Bitart (Oilton 10-325 Mg) 1 each PO Q6H PRN PRN Reason: Moderate Pain Stop: 03/28/17 14:16 Last Admin: 09/28/16 12:34 Dose: 1 each Albuterol Sulfate (Proventil Neb) 2.5 mg IH Q2H PRN PRN Reason: Shortness Of Breath/Wheezing Stop: 03/28/17 11:18 Amoxicillin (Amoxil) 500 mg PO TID [facility] PRN Reason: Protocol Stop: 03/28/17 22:31 Last Admin: 09/28/16 09:51 Dose: 500 mg Aspirin (Aspirin) 81 mg PO DAILY [facility] Stop: 03/29/17 09:01 Last Admin: 09/28/16 09:51 Dose: 81 mg Calcium Carbonate (Tums) 1,000 mg PO QID [facility] PRN Reason: Protocol Stop: 03/29/17 21:01 Last Admin: 09/28/16 12:22 Dose: 1,000 mg Cyclobenzaprine HCl (Flexeril) 10 mg PO TID PRN PRN Reason: Muscle Spasm Stop: 03/28/17 11:14 Last Admin: 09/26/16 13:48 Dose: 10 mg Diazepam (Valium) 5 mg PO QID PRN PRN Reason: Anxiety Stop: 03/28/17 11:14 Last Admin: 09/28/16 09:51 Dose: 5 mg Docusate Sodium (Colace) 100 mg PO DAILY [facility] PRN Reason: Protocol Stop: 03/29/17 09:01 Last Admin: 09/28/16 09:52 Dose: 100 mg Famotidine (Pepcid) 20 mg PO BID [facility] Stop: 03/28/17 21:01 Last Admin: 09/28/16 09:52 Dose: 20 mg Ferrous Sulfate (Ferrous Sulfate) 325 mg PO DAILY [facility] Stop: 03/29/17 09:01 Last Admin: 09/28/16 09:52 Dose: 325 mg Furosemide (Lasix) 40 mg PO BIDDIURETIC [facility] Stop: 03/28/17 17:01 Last Admin: 09/28/16 09:52 Dose: 40 mg Gabapentin (Neurontin) 800 mg PO QID [facility] Stop: 03/28/17 13:01 Last Admin: 09/28/16 12:22 Dose: 800 mg Hydrochlorothiazide (Hydrochlorothiazide) 12.5 mg PO DAILY [facility] Stop: 03/29/17 09:01 Last Admin: 09/28/16 09:52 Dose: 12.5 mg Lidocaine HCl (Lidoderm 5% Patch) 1 each TP DAILY [facility] Stop: 03/29/17 13:46 Last Admin: 09/28/16 09:53 Dose: 1 each Naloxone HCl (Narcan) 0.4 mg IVP Q2MIN PRN PRN Reason: Opioid Reversal Stop: 03/28/17 11:07 Omeprazole (Prilosec) 40 mg PO DAILY [facility] Stop: 03/29/17 09:01 Last Admin: 09/28/16 09:51 Dose: 40 mg Ondansetron HCl (Zofran) 4 mg IVP Q8HR PRN PRN Reason: Nausea And Vomiting Stop: 03/28/17 11:07 Last Admin: 09/28/16 05:30 Dose: 4 mg Pharmacy Profile Note (Patient Taking Own Medication) 40 each SQ MoWeFr@0900 [facility] Stop: 03/28/17 22:46 Last Admin: 09/28/16 09:53 Dose: Not Given Sumatriptan Succinate (Imitrex) 100 mg PO DAILY [facility] Stop: 03/29/17 09:01 Last Admin: 09/28/16 09:52 Dose: 100 mg Tizanidine HCl (Zanaflex) 4 mg PO HS [facility] Stop: 03/28/17 21:01 Last Admin: 09/27/16 20:41 Dose: 4 mg Topiramate (Topamax) 50 mg PO BID [facility] Stop: 03/28/17 21:01 Last Admin: 09/28/16 09:51 Dose: 50 mg Warfarin Sodium (Coumadin Perpt) 1 each PO DAILY@1800 PRN PRN Reason: SEE COMMENTS Stop: 03/28/17 18:01 Warfarin Sodium (Coumadin) 7.5 mg PO DAILY@1800 [facility] Stop: 03/30/17 18:01 Laboratory Tests 09/27/16 09/28/16 09/28/16 03:36 04:13 04:13 Hgb 13.0 Potassium 3.6 Creatinine 0.79 Triglycerides 102 Cholesterol 152 LDL Cholesterol, Calc 93 HDL Cholesterol 39 L - Imaging and Cardiology Chest Xray: report reviewed Stress Test: report reviewed - EKG Interpretation EKG results cardiology: personally reviewed (ECG with SR, HR 93, incomplete right bundle branch block.), other (Telemetry reviewed with bess HR 85, sinus rhythm. Rare PVCs noted.) Consult Discharge Plan - Plan Referrals: Pete Najera DO [Primary Care Provider] - 10/03/16 11:45 am
[2016-09-28] MEDS ORDERED: Nitroglycerin 0.4 MG TAB.SUBL SL PRN (14:55)
[2016-09-28 15:09] VITALS: BP 130/75
--- NOTE | 2016-09-28 16:00 | Discharge Summary ---
Date of Encounter: 09/28/16 Time of Encounter: 12:00 - Discharge Diagnosis (1) Chest pain Priority: Primary Status: Acute Comments: Patient was admitted on September 26 with sudden onset midsternal, constant, sharp chest pain that began 24 hours prior to arrival. There is no radiation of the chest pain. She denied shortness of breath, nausea, vomiting or diaphoresis. She said the pain awakened her and that ended when she got nitroglycerin in the emergency department a few hours later. She estimated the pain lasted a few hours. Patient had a 2 day stress test and echocardiogram. She is having chest pain today when I saw her around noon. Her troponins were negative 3. Her chest x-ray was negative for any acute cardiopulmonary process. Patient had suboptimal echocardiogram that showed an LVEF of 55-60%. Grossly normal LV chamber size and wall thickness, indeterminate diastolic dysfunction, grossly mildly dilated right ventricle with normal function. Patient had 2 day stress test. The quality was fair and limited by body habitus. Pharmacologic stress ECG was negative for ischemia and there is a small sized, mild intensity , fixed apex defect. Also medium sized, mild intensity, reversible anterior perfusion defect ischemia cannot be excluded. Cardiology was consulted. Patient wishes to follow up with her wheel shop supervisor at [facility]. She will be discharged with a beta kelly and a statin. She will continue taking her aspirin. She will also be discharged with sublingual nitroglycerin to use when necessary. Cardiology discussed at length with patient and family regarding the abnormal stress test. Cardiology has signed off and patient will follow up with primary wheel shop supervisor of [facility]. Qualifiers: Chest pain type: unspecified Qualified Code(s): R07.9 - Chest pain, unspecified (2) Stable multiple sclerosis Priority: Secondary Status: Chronic (3) NATA (obstructive sleep apnea) Priority: Secondary Status: Chronic Comments: Continue CPAP use. (4) Hypertension Priority: Secondary Status: Chronic Comments: Chronic. Continue medications. Qualifiers: Hypertension type: essential hypertension Qualified Code(s): I10 - Essential (primary) hypertension (5) Morbid obesity due to excess calories Priority: Secondary Status: Chronic Comments: Chronic. Lifestyle modifications. (6) Hx pulmonary embolism Priority: Secondary Status: Resolved (7) DVT prophylaxis Priority: Secondary Status: Acute Comments: Patient is already on Coumadin. She also wears CHASE hose continuously. (8) Hypoxia Priority: Secondary Status: Chronic Comments: Patient has required supplemental oxygen during her stay to maintain her sats greater than 92%. Saturations decrease below 88% with ambulation. Patient qualifies for home O2. - Discharge Medications Prescriptions: Nitroglycerin 0.4 mg SL Q5MIN PRN #9 tab.subl PRN Reason: Chest Pain Atorvastatin [Lipitor] 40 mg PO HS #30 tablet Metoprolol [Lopressor] 12.5 mg PO BID #60 tablet Home Medications: Albuterol Sulfate [Proair Hfa] 2 puff IH Q4H PRN 02/09/16 [History] Aspirin 81 mg PO DAILY 02/09/16 [History] Cetirizine HCl [Zyrtec] 10 mg PO DAILY 02/09/16 [History] Cholecalciferol (D-3) [Vitamin D] 1,000 unit PO DAILY 02/09/16 [History] Cyclobenzaprine [Flexeril] 10 mg PO TID PRN 02/09/16 [History] Cyclosporine [Restasis] 1 each OP BID 02/09/16 [History] Docusate [Colace] 100 mg PO DAILY 02/09/16 [History] Ferrous Sulfate 325 mg PO DAILY 02/09/16 [History] Fluticasone Propionate Nasal [Flonase] 1 spray NS BID 02/09/16 [History] Folic Acid/Multivit-Min/Lutein [Adult Multivitamin Gummies] 1 tab PO DAILY 02/08 [History] Furosemide [Lasix] 40 mg PO BID 02/09/16 [History] Gabapentin [Neurontin] 800 mg PO QID 02/09/16 [History] Glatiramer Acetate [Copaxone] 40 mg SQ MOWEFR 02/09/16 [History] Guaifenesin [Mucinex] 600 mg PO DAILY PRN 02/09/16 [History] HYDROcodone/Acet 10/325 mg [[place] 10-325 mg] 1 tab PO Q4HR PRN 02/09/16 [History ] Lidocaine Patch [Lidoderm 5% patch] 1 each TP DAILY 02/09/16 [History] Nystatin POWDER [Nystop] 1 appl TP DAILY 02/09/16 [History] Polyethylene Glycol 3350 [MiraLAX] 17 gm PO DAILY PRN 02/09/16 [History] Promethazine [Phenergan] 25 mg PO HS 02/09/16 [History] Ranitidine HCl [Zantac] 150 mg PO BID 02/09/16 [History] SUMAtriptan Succinate [Imitrex] 100 mg PO AD PRN 02/09/16 [History] Scopolamine Patch [Transderm-Scop] 1.5 mg TD Q72H PRN 02/09/16 [History] Tizanidine HCl [Zanaflex] 4 mg PO HS 02/09/16 [History] Topiramate [Topamax] 50 mg PO BID 02/09/16 [History] diazePAM [Valium] 5 mg PO QID PRN 02/09/16 [History] hydroCHLOROthiazide [Hydrochlorothiazide] 12.5 mg PO DAILY 02/09/16 [History] Ondansetron ODT [Zofran ODT] 4 mg SL Q8HR #14 tab.rapdis 07/29/16 [Rx] Omeprazole [PriLOSEC] 40 mg PO DAILY 09/26/16 [History] Warfarin [Coumadin] 10 mg PO MOWEFR@1800 09/26/16 [History] Warfarin [Coumadin] 7.5 mg PO SUTUTHSA@1800 09/27/16 [History] Albuterol Neb [Proventil Neb] 2.5 mg IH Q2H PRN #0 inhsol 09/28/16 [Rx] Atorvastatin [Lipitor] 40 mg PO HS #30 tablet 09/28/16 [Rx] Calcium Carbonate [Tums] 1,000 mg PO QID #0 tab.chew 09/28/16 [Rx] Lidocaine Patch [Lidoderm 5% patch] 1 each TP DAILY adh..patch 09/28/16 [Rx] Metoprolol [Lopressor] 12.5 mg PO BID #60 tablet 09/28/16 [Rx] Nitroglycerin 0.4 mg SL Q5MIN PRN #9 tab.subl 09/28/16 [Rx] Allergies/Adverse Reactions: Allergies codeine Adverse Reaction (Verified 08/07/16 12:00) See Comments hyperactivity Erythromycin Base Adverse Reaction (Verified 08/07/16 12:00) Vomiting Tetracycline Adverse Reaction (Verified 08/07/16 12:00) Vomiting Procedures/tests Complete & Pending: Procedures Performed prior 72 hours Category Date Time Status NM christiane perf SPECT multi [NM] Routine Exams 09/27/16 07:00 Taken EV echocardiogram Routine Y 09/26/16 11:12 Completed SP pharm nuclear stress Routine Y 09/27/16 07:00 Completed Date of admission: 09/26/16 10:02 Primary care physician: Romaine Saunders Consults: 09/28/16 11:24 Consult to Cardiology [CONS] Routine Comment: Consulting Provider: Cardiology Snow Reason for Consult: Abnormal stress test Time Notified: 11:24 Call Completed: Yes Discharging clinician: Lanny Augustine Anticipated date of discharge: 09/28/16 - Patient Status Disposition: Home, Self-Care Functional capacity at discharge: uses cane/walker Overall status at discharge: patient is back to baseline - Discharge Instructions Follow Up With: Pete Najera DO [Primary Care Provider] - 10/03/16 11:45 am Additional Instructions: Start taking your new medications tomorrow. Follow up with your wheel shop supervisor at [facility] as soon as you can get in/ Follow up with your primary care physician within the next week to 10 days for a follow up evaluation. I have only given you a 30 day supply of your medications, you will need to follow up for refills. Return to the ER if you have any new or concerning symptoms, if your chest pain returns, you have increasing shortness of breath, or for any other problems or concerns. - Diet and Activity Activity: ambulate only with your walker, increase activity as tolerated Diet: low fat, low cholesterol, low salt diet Hospital course: Ms. Osborn is a 46 year old female with prior medical history of PE, MS, GERD, hypertension. Patient reported sudden onset midsternal chest pain without radiation that was constant. It began 2 days ago. She denied shortness of breath, nausea, vomiting, or diaphoresis. The pain awakened her from sleep and it ended when she had nitroglycerin in the emergency department yesterday. It did not return until today. She said today she is still having dull aching in her chest. Patient did have a 2 day stress test though suboptimal due to body habitus. There is a small sized, mild intensity, fixed apex defect. There is a medium sized, mild intensity, reversible anterior perfusion defect. Ischemia could not be included. She had an echocardiogram on 09/26/16 with LVEF of 55-60%, indeterminate diastolic function, grossly mildly dilated right ventricle with normal function. No significant valvular dysfunction. Cardiology discussed this with the patient. She says that she will follow up outpatient with Dr. Collins at [facility]. She has seen him before. She will be started on a statin and beta kelly. She will continue to take her aspirin. Patient also requested oxygen at home she did qualify. Patient is in a chronic stable state, still requiring oxygen at 2 L at discharge. She will be discharged with prescription for home oxygen related to hypoxia. Labs are stable. Vital signs are stable. Patient is appropriate stable for discharge. - Time Spent with Patient Total time spent providing and/or coordinating discharge services: Less than 30 minutes - Constitutional Vitals: Temp Pulse Resp BP Pulse Ox 98.0 F 83 17 130/75 98 09/28/16 15:08 09/28/16 15:08 09/28/16 15:08 09/28/16 15:08 09/28/16 15:08 General appearance: Present: A&O X 3, morbidly obese, no acute distress, answers questions appropriately - Head Head exam: Present: normal inspection - Eye Eye exam: Present: normal appearance, conjuntiva pink - ENT ENT exam: Present: mucous membranes moist, normal exam - Neck Neck exam general surgery: Present: normal inspection. Absent: lymphadenopathy , tenderness - Respiratory Respiratory exam: Present: CTAB. Absent: chest wall tenderness, rales, respiratory distress, rhonchi, stridor, tachypnea - Cardiovascular Cardiovascular exam: Present: RRR, +S1, +S2. Absent: diastolic murmur, systolic murmur - GI/Abdominal GI/Abdominal exam: Present: distended, normal bowel sounds, soft. Absent: hepatomegaly, tenderness - Extremities Exam Extremities exam: Present: normal capillary refill, pedal edema, warm, radial pulses palpable and symetrical. Absent: normal inspection, mottling, tenderness - Neurological Exam Neurological exam: Present: alert, oriented X3, no focal deficits, strengths equal and symetr throughout. Absent: facial droop, speech deficit
[2016-09-28] MEDS ORDERED: *HR* Warfarin 7.5 MG TABLET PO SCH (18:00)
== END 2016-09-28 17:20 | disposition home or self-care (01) ==
LOC: 3BNU 08:29 → EMEROO 08:29 → 3BNU 10:24
PROVIDERS: ADMIT Nurse Practitioner Acute Care; ATTEND Nurse Practitioner Family